=== PATIENT | male | born 1970 | race Hispanic/Latino ===

== ENCOUNTER → 2018-11-07 | Outpatient (CLI) | payer OTHER, SELFPAY ==
[~2018-11-07] MED LIST: LISINOPRIL10 MG PO
== END ==
LOC: RAD 05:00 → EDSTATUS 11-22 18:30
PROVIDERS: ATTEND Internal Medicine Gastroenterology
DX: Z01.818 Encounter for other preprocedural examination (principal); K64.9 Unspecified hemorrhoids; Z53.9 Procedure and treatment not carried out, unspecified reason
CPT/HCPCS: 93005